=== PATIENT | female | born 1940 | race Caucasian/White ===

== ENCOUNTER 2018-09-15 04:48 | Emergency (ER) | payer MEDICARE, OTHER ==
[~2018-09-15] VITALS: Ht 165.1 cm; Wt 68.0 kg
[~2018-09-15 04:48] MED LIST: OMEPRAZOLE PO; PAIN MED PO; PARO-2 PO; THYROID MED PO
[2018-09-15 04:58] VITALS: Ht 165.1 cm; Wt 68.0 kg
[2018-09-15] MEDS ORDERED: MECLIZINE 12.5 MG TAB PO ONE (06:30)
[2018-09-15] MEDS ORDERED: NICARDipine HCL 30 MG CAPSULE PO ONE (06:30)
[2018-09-15] MEDS ORDERED: MECL12.574 PO (08:32)
--- NOTE | 2018-09-15 08:36 | ERD ---
ER Documentation Chief Complaint Chief Complaint dizziness w/ uncontrolled htn, burning pain throughout body HPI This is a 78-year-old female who is here for vertigo. She said she rolled over in bed just prior to arrival in the room started spinning all of a sudden I was very strong and induce nausea vomiting x1. No chest pain shortness of breath no focal neurological complaints of numbness weakness in extremities speech change or visual change or difficulty swallowing. She says that moving her head here will make it recur but not as strong. She also has chronic body burning which the family thinks is psychological. The patient also has chronic epigastric pain and she has a history of H. pylori. No diarrhea no recent illness or fever ROS All systems reviewed and are negative except as per history of present illness. Medications Home Meds Active Scripts Meclizine Hcl* (Antivert*) 12.5 Mg Tab, 25 MG PO Q6H PRN for DIZZINESS, #20 TAB Prov:MARIANNE ARIZMENDI DO 09/15/18 Discontinued Reported Medications [Pain Med] No Conflict Check, PO DAILY PRN 06/19/11 [Omeprazole] No Conflict Check, PO DAILY 06/19/11 [Thyroid Med] No Conflict Check, PO DAILY 06/19/11 Paroxetine Hcl* (Paxil*) 20 Mg Tablet, 20 MG PO DAILY 06/19/11 Allergies Allergies: Coded Allergies: aspirin (Verified Allergy, Mild, RASH, 06/19/11) streptomycin (Verified Allergy, Mild, RASH, 06/19/11) Penicillins (Verified Allergy, Unknown, 06/19/11) PMhx/Soc History of Surgery: Yes (HERNIA REPAIR, TUBAL LIGATION, TONSILLECTOMY) Anesthesia Reaction: No Hx Neurological Disorder: No Hx Respiratory Disorders: No Hx Cardiac Disorders: Yes (CHESTPAINS AND PALPITATIONS) Hx Psychiatric Problems: Yes (DEPRESSION, ANXIETY) Hx Miscellaneous Medical Probl: Yes (HIGH CHOLESTEROL, HTN) Hx Alcohol Use: No Hx Substance Use: No Hx Tobacco Use: No Smoking Status: Never smoker FmHx Family History: No coronary disease Physical Exam Vitals Vital Signs Date Temp Pulse Resp B/P (MAP) Pulse Ox O2 O2 Flow FiO2 Time Delivery Rate 09/15/18 76 18 119/48 95 Room Air 07:38 (71) 09/15/18 97.3 72 17 190/64 95 04:58 (106) Physical Exam Const: Well-developed, well-nourished Head: Atraumatic, normocephalic Eyes: Normal Conjunctiva, PERRLA, EOMI, normal sclera, no nystagmus ENT: Normal External Ears, Nose and Mouth, moist mucus membranes. Neck: Full range of motion. No meningismus, no lymphadenopathy. Resp: Clear to auscultation bilaterally, no wheezing, rhonchi, rales Cardio: Regular rate and rhythm, no murmurs, S1 S2 present Abd: Soft, non tender x 4, non distended. Normal bowel sounds, no guarding or rebound, no pulsitile abdominal masses or bruits Skin: No petechiae or rashes, no ecchymosis , no maculopapular rash Back: No midline or flank tenderness Ext: No cyanosis, or edema, FROM x 4, normal inspection, neurovascularly intact x 4 Neur: Awake and alert, STR 5/5 x 4, sensation intact x 4, no focal findings, cerebellum intact Psych: Normal Mood and Affect Result Diagram: 09/15/1812 09/15/18 0512 Results 24 hrs Laboratory Tests Test 09/15/18 05:12 White Blood Count 7.6 10^3/ul Red Blood Count 4.42 10^6/ul Hemoglobin 12.7 g/dl Hematocrit 39.5 % Mean Corpuscular Volume 89.4 fl Mean Corpuscular Hemoglobin 28.7 pg Mean Corpuscular Hemoglobin Concent 32.2 g/dl Red Cell Distribution Width 13.1 % Platelet Count 256 10^3/UL Mean Platelet Volume 10.9 fl Immature Granulocytes % 0.300 % Neutrophils % 61.6 % Lymphocytes % 28.2 % Monocytes % 5.4 % Eosinophils % 3.8 % Basophils % 0.7 % Nucleated Red Blood Cells % 0.0 /100WBC Immature Granulocytes # 0.020 10^3/ul Neutrophils # 4.7 10^3/ul Lymphocytes # 2.1 10^3/ul Monocytes # 0.4 10^3/ul Eosinophils # 0.3 10^3/ul Basophils # 0.1 10^3/ul Nucleated Red Blood Cells # 0.0 10^3/ul Sodium Level 143 mmol/L Potassium Level 3.6 mmol/L Chloride Level 101 mmol/L Carbon Dioxide Level 26 mmol/L Anion Gap 16 Blood Urea Nitrogen 18 mg/dl Creatinine 0.58 mg/dl Est Glomerular Filtrat Rate mL/min mL/min Glucose Level 154 mg/dl Calcium Level 9.6 mg/dl Total Bilirubin 0.3 mg/dl Direct Bilirubin 0.00 mg/dl Indirect Bilirubin 0.3 mg/dl Aspartate Amino Transf (AST/SGOT) 25 IU/L Alanine Aminotransferase (ALT/SGPT) 19 IU/L Alkaline Phosphatase 65 IU/L Troponin I < 0.012 ng/ml B-Type Natriuretic Peptide 199 PG/ML Total Protein 7.5 g/dl Albumin 4.3 g/dl Globulin 3.20 g/dl Albumin/Globulin Ratio 1.34 Current Medications Medications Dose Sig/Shellie Start Time Status Last (Trade) Ordered Route PRN Stop Time Admin Dose Reason Admin Meclizine 25 mg ONCE ONCE 09/15/18 DC HCl PO 06:30 (Antivert) 09/15/18 06:31 Nicardipine 30 mg ONCE ONCE 09/15/18 DC 09/15/18 HCl PO 06:30 07:00 (Cardene) 09/15/18 06:31 Procedures/MDM Ordering MD: MARIANNE ARIZMENDI DO Location: E/R Room/Bed: PROCEDURE: CT Abdomen and Pelvis without contrast. CLINICAL INDICATION: Abdominal pain. TECHNIQUE: Routine axial tomographic images of the abdomen and pelvis were obtained from the domes of the diaphragm to the symphysis pubis. The patient was scanned withoutoral or intravenous contrast. Coronal and sagittal reformatted images were obtained from the axial source images. Images were reviewed on a high-resolution PACS workstation. The total exam CTDI equals 14.22 mGy and the total exam DLP equals 831.18 mGy-cm. One or more of the following dose reduction techniques were used: Automated exposure control, adjustment of the mA and / or kV according to patient size, or use of iterative reconstruction technique. DICOM images are available. COMPARISON: None. FINDINGS: The visualized portions of the lung bases demonstrate mild bilateral basilar atelectasis. Evaluation of the intra-abdominal solid organs is somewhat limited on this noncontrast examination. The liver appears normal in size. The common bile duct is dilated, measuring 16 mm in diameter. The gallbladder is surgically absent. The spleen, pancreas, and adrenal glands are unremarkable. The kidneys are symmetric in size. No renal, ureteral, or bladder calculi are identified. No perinephric inflammatory changes are identified. The urinary bladder is grossly unremarkable. The bowel demonstrates normal course and caliber. There is no evidence of bowel obstruction. The appendix is normal in appearance. Diverticula are seen along the sigmoid colon. There is mild nonspecific mid abdominal mesenteric fat stranding. No intraperitoneal free fluid, free air or abscess is identified. The uterus is surgically absent. No retroperitoneal, mesenteric, or inguinal lymphadenopathy is identified. The aorta is normal in caliber and contains vascular calcifications. The osseous structures demonstrate degenerative changes of the spine. No significant subcutaneous soft tissue abnormalities are seen. IMPRESSION: 1. Limited, noncontrast CT of the abdomen and pelvis. The common bile duct is dilated measuring 16 mm in diameter. Correlation with LFTs is recommended. Consider MRCP for further evaluation, as clinically indicated. 2. Status post cholecystectomy. 3. Colonic diverticulosis. 4. Mild nonspecific mid abdominal mesenteric fat stranding. 5. Status post hysterectomy. 6. Senescent changes with aortic atherosclerosis and degenerative changes of the spine. RPTAT: HH .Katrina Lobo MD, MD Date Time Electronically viewed and signed by .Katrina Lobo MD, MD on 09/15/2018 07:26 .G/ CC: MARIANNE ARIZMENDI DO [id number] MR #: [id number] DOS: 09/15/18 0620 Ordering MD: MARIANNE ARIZMENDI DO Location: E/R Room/Bed: PROCEDURE: CT BRAIN WITHOUT CONTRAST CLINICAL INDICATION: 78-year-old female with headaches. TECHNIQUE: The study was performed utilizing [employer] 64-slice CT scanner. Direct axial sections were obtained from the foramen magnum to the vertex without the use of intravenous contrast material. The study was repeated secondary to motion artifact. Sagittal and coronal reformations were obtained. One or more of the following dose reduction techniques were utilized: automated exposure control, adjustment of the mA and/or kV according to patient's size or use of iterative reconstruction technique. DICOM images are available. The images were viewed on a PACS workstation. CTD/vol = 79.28 mGy; Total Exam DLP = 1268.46 mGy.cm. COMPARISON: None. FINDINGS: There is mild degree of diffuse cortical and central atrophy with compensatory ventricular enlargement. There is no evidence for mass effect or midline shift. There are mild periventricular areas of decreased density consistent with microangiopathic ischemic changes. There is no evidence for acute intra or extra-axial blood. Calcifications are seen within the intracranial carotid arteries bilaterally. The bony calvarium is intact. The partially visualized paranasal sinuses and mastoid air cells are without significant abnormal soft tissue. IMPRESSION: 1. Mild diffuse atrophy. 2. Microangiopathic ischemic changes. 3. Vascular calcifications. .Danilo Crawford MD, MD Date Time Electronically viewed and signed by .Danilo Crawford MD, on 09/15/2018 06:43 .M/ CC: MARIANNE ARIZMENDI DO [id number] MR #: [id number] DOS: 09/15/18 0458 Ordering MD: PHU DAVISON MD Location: E/R Room/Bed: PROCEDURE: CHEST - 1 VIEW CLINICAL INDICATION: 78-year-old female with chest pain. TECHNIQUE: A single frontal AP semi-erect view of the chest was performed. The images were reviewed on a PACS workstation. COMPARISON: None. FINDINGS: The cardiomediastinal silhouette is within normal limits. There is a shallow inspiration. There is minimal bibasilar subsegmental atelectasis. There appears to be a square shaped density within the right mid lung zone most likely representing an external structure. There is no evidence for congestive heart failure. There is no evidence for pneumothorax. Mild degenerative changes within the spine. IMPRESSION: 1. Shallow inspiration with minimal bilateral lower lung zone subsegmental atelectasis. 2. Square shaped density overlying the right mid lung zone most likely external. Clinical correlation is necessary. 3. Mild degenerative changes within the spine. .Danilo Crawford MD, Date Time Electronically viewed and signed by .Danilo Crawford MD, on 09/15/2018 06:41 .M/ CC: PHU DAVISON [id number] Patient received blood pressure medication, Antivert and she is feeling much better. I called and discussed the case with Dr. Lomax and her primary care physician. He said to go ahead and have the patient discharged and follow-up with him in the office Patient feels much better at this time, and vital signs are normal, symptoms have improved. I did give strict instructions to return to the ED if symptoms continue or worsen, patient will otherwise follow-up with primary care physician. Patient understood instructions and agreed to plan. Disclaimer: Inadvertent spelling and grammatical errors are likely due to EHR/dictation software use and do not reflect on the overall quality of patient care. Also, please note that the electronic time recorded on this note does not necessarily reflect the actual time of the patient encounter. Her presentation is a clear peripheral vertigo and not a central issue Departure Diagnosis: Primary Impression: Vertigo Condition: Stable Patient Instructions: Inner Ear Problems: Causes of Dizziness (Vertigo), Vertigo, Unspecified MARIANNE ARIZMENDI DO Sep 15, 2018 08:36
[2018-09-15 08:55] VITALS: BP 118/65; PULSE 74; RESP 18
== END 2018-09-15 09:07 | disposition home or self-care (01) ==
LOC: E/R 04:48
DX: R42 Dizziness and giddiness (principal); R40.2142 Coma scale, eyes open, spontaneous, at arrival to emergency department; R40.2362 Coma scale, best motor response, obeys commands, at arrival to emergency department; R40.2252 Coma scale, best verbal response, oriented, at arrival to emergency department; I10 Essential (primary) hypertension
CPT/HCPCS: 36415; 70450; 71045; 74176; 80053; 83880; 84484; 85025; 93005

== ENCOUNTER 2019-02-09 06:09 | Day surgery (SDC) | payer MEDICARE, OTHER ==
[~2019-02-09] VITALS: Ht 160 cm; Wt 67.9 kg
[~2019-02-09 06:09] MED LIST changes: +MECL12.574 PO; -OMEPRAZOLE PO; -PAIN MED PO; -PARO-2 PO; -THYROID MED PO
[2019-02-09 07:54] VITALS: Ht 160 cm; Wt 67.9 kg
--- NOTE | 2019-02-09 07:55 | PREAC ---
Date/Time of Note Date/Time of Note DATE: 02/09/19 TIME: 07:54 Anesthesia Eval and Record Evaluation Time Pre-Procedure Interview DATE: 02/09/19 TIME: 07:54 Age 78 Sex female NPO: 8 hrs Preoperative diagnosis ABDOMINAL PAIN, CHANGE IN BOWEL HABITS Planned procedure EGD, COLONOSCOPY Past Medical History Past Medical History: Includes Cardio: HTN Endo: Hyperthyroid Psych: Anxiety Surgery & Anesthesia Issues No known issue Meds Anticoagulation: No Beta Mauro within 24 hr: No Reason Beta Mauro not given: Pt. not on B-Mauro Discontinued Scripts Meclizine Hcl* (Antivert*) 12.5 Mg Tab, 25 MG PO Q6H PRN for DIZZINESS, #20 TAB Prov:MARIANNE ARIZMENDI DO 09/15/18 Meds reviewed: Yes Allergies Coded Allergies: Penicillins (Verified Allergy, Unknown, 02/09/19) Allergies Reviewed: Yes Labs/Studies Labs Reviewed: Reviewed by anesthesiologist test: N/A Pre-procedure Exam Airway: Adequate mouth opening, Adequate thyromental dist Mallampati: Mallampati II Teeth: Abnormal (UPPER AND LOWER DENTURES) Lung: Normal Heart: Normal ASA Physical Status ASA physical status: 2 Emergency: None Planned Anesthetic General/MAC: MAC Planned Pain Management Parenteral pain med Pre-operative Attestations Prior to commencing anesthesia and surgery, the patient was re-evaluated, there was verification of: *The patient's identity *The results of appropriate recent lab work and preoperative vital signs *The above evaluation not changing prior to induction *Anesthetic plan, risk benefits, alternative and complications discussed with patient/family; questions answered; patient/family understands, accepts and wishes to proceed. Darnell Mcneil M.D. Feb 09, 2019 07:55
[2019-02-09] MEDS ORDERED: OMEP40CA6 PO (08:12)
[2019-02-09] MEDS ORDERED: METO-448 PO (08:12)
[2019-02-09] MEDS ORDERED: CLON-379 PO (08:12)
[2019-02-09] MEDS ORDERED: LIPA1CAP6 PO (08:12)
[2019-02-09] MEDS ORDERED: METH-493 PO (08:12)
[2019-02-09] MEDS ORDERED: CLON0.5T14 PO (08:12)
[2019-02-09] MEDS ORDERED: LIPA1CAP18 PO (08:12)
[2019-02-09] MEDS ORDERED: CETI5SOL PO (08:12)
[2019-02-09] MEDS ORDERED: ASPI-535 PO (08:14)
[2019-02-09] MEDS ORDERED: PROPOFOL 40 ML ONE (08:18)
[2019-02-09] MEDS ORDERED: PROPOFOL 200 MG INJ ONE (08:18)
[2019-02-09] MEDS ORDERED: LIDOCAINE 100 MG SYRINGE ONE (08:18)
[2019-02-09 08:32] VITALS: BP 182/75; PULSE 77; RESP 18
[2019-02-09] MEDS ORDERED: FENTAnyl 50 MCG/ML VIAL ONE (08:32)
--- NOTE | 2019-02-09 09:02 | PAC ---
Date/Time of Note Date/Time of Note DATE: 02/09/19 TIME: 09:01 Post-Anesthesia Notes Post-Anesthesia Note Last documented vital signs HR 76 RR 14 BP 110/67 T 98.2 Activity: WNL Respiratory function: WNL Cardiovascular function: WNL Mental status: Baseline Pain reasonably controlled: Yes Hydration appropriate: Yes Nausea/Vomiting absent: Yes Darnell Mcneil M.D. Feb 09, 2019 09:02
[2019-02-09 09:41] VITALS: BP 182/75; PULSE 67; RESP 18
== END 2019-02-09 11:44 | disposition home or self-care (01) ==
LOC: GIL 06:09
PROVIDERS: ATTEND Internal Medicine Gastroenterology
DX: R19.4 Change in bowel habit (principal); K64.8 Other hemorrhoids; D12.5 Benign neoplasm of sigmoid colon; D17.5 Benign lipomatous neoplasm of intra-abdominal organs; K29.50 Unspecified chronic gastritis without bleeding; I10 Essential (primary) hypertension
CPT/HCPCS: 43239; 45380; 88305; 88312; J2001; J3010